=== PATIENT | male | born 1950 | race Caucasian/White ===

== ENCOUNTER 2019-04-11 09:24 | Outpatient (CLI) | payer MEDICARE, OTHER, SELFPAY ==
--- NOTE | 2019-04-11 | XR_ITS ---
WS: [id number] THORACIC SPINE TECHNIQUE: 3 views of the thoracic spine CLINICAL INFORMATION: ACUTE LUMBAR AND THORACIC BACK PAIN COMPARISON: None. FINDINGS: Mild thoracic curve. Hypertrophic changes thoracic spine. Chronic anterior wedging in the mid and low er thoracic spine. No acute appearing compression fractures. XR/XR thoracic spine 3V* [id number] IMPRESSION: No acute thoracic spine findings
--- NOTE | 2019-04-11 | XR_ITS ---
WS: [id number] LUMBAR SPINE TECHNIQUE: 3 views of the lumbar spine CLINICAL INFORMATION: ACUTE LUMBAR AND THORACIC BACK PAIN COMPARISON: None. FINDINGS: Five [id number] lumbar vertebral bodies. Mild lumbar curve convex left. Slight retrolisthesis L3 on L4. Disc space narrowing worse L5-S1. Mild facet arthropathy L5-S1. Mild chronic anterior wedging at the thoracolumbar junction. Vascular calcification. XR/XR lumbar spine 2-3V* [id number] IMPRESSION: Moderate spondylitic changes. No acute lumbar spine findings.
== END 2019-04-11 09:25 | disposition home or self-care (01) ==
LOC: RADOUTREAD 12:13
PROVIDERS: Family Provider Internal Medicine; PCP Internal Medicine; Visit Provider Internal Medicine
DX: M47.896 Other spondylosis, lumbar region (principal); M54.5 Low back pain; M54.6 Pain in thoracic spine

== ENCOUNTER → 2021-07-29 13:43 | Outpatient (BNVA) | payer MEDICARE, OTHER, SELFPAY | PROVIDERS: Family Provider Internal Medicine; PCP Internal Medicine; Visit Provider Internal Medicine Cardiovascular Disease | DX: I25.10 Atherosclerotic heart disease of native coronary artery without angina pectoris (principal); I25.2 Old myocardial infarction; Z87.891 Personal history of nicotine dependence; I10 Essential (primary) hypertension; E78.5 Hyperlipidemia, unspecified | CPT/HCPCS: 99213 ==

== ENCOUNTER → 2022-07-29 12:18 | Outpatient (BNVA) | payer MEDICARE, OTHER, SELFPAY | PROVIDERS: Family Provider Internal Medicine; PCP Internal Medicine; Visit Provider Internal Medicine Cardiovascular Disease | DX: I35.1 Nonrheumatic aortic (valve) insufficiency (principal); Z86.79 Personal history of other diseases of the circulatory system; Z86.39 Personal history of other endocrine, nutritional and metabolic disease; Z87.891 Personal history of nicotine dependence | CPT/HCPCS: 93005; 99215 ==

== ENCOUNTER 2022-08-12 10:57 | Outpatient (CLI) | payer MEDICARE, OTHER, SELFPAY ==
--- NOTE | 2022-08-12 11:15 | USCV_ITS ---
Poli Piper Age: 71 Gender: M : 1950 Exam Date: 08/12/2022 11:14 Ordering Phys: Lottie Mccauley MD ([email or web address]) Technologist: Isiah Villasenor [place] [facility] [place]: AO regurg BP: 135 / 83 HR: 63 Rhythm: Sinus Technical Quality: Adequate MEASUREMENTS (Male / Female) Normal Values 2D ECHO LVOT Diameter 2.0 cm LV Ejection Fraction MOD 2C 65.4 % LV Ejection Fraction 2C AL 65.9 % LA Diameter 3.3 cm LA Width 3.4 cm LA Height 4.3 cm RA Width 3.3 cm RA Height 4.0 cm Aorta at Sinotubular Diameter 2.9 cm M-MODE Aortic Annulus Diameter 3.0 cm LA Ao Ratio MM 1.1 MV E Point Septal Separation 0.7 cm DOPPLER AV Peak Velocity 286.7 cm/s LVOT Peak Velocity 71.0 cm/s AV Area Cont Eq vti 0.9 cm squared AV Area Cont Eq pk 0.8 cm squared MV Peak Velocity 127.0 cm/s MV Area PHT 4.3 cm squared Mitral E to A Ratio 0.9 MV E' Velocity 41.0 cm/s Mitral E to MV E' Ratio 10.0 Mitral E to LV E' Lateral Ratio 9.3 Mitral E to LV E' Septal Ratio 10.9 TR Peak Velocity 334.5 cm/s TR Peak Gradient 49.8 mmHg TR Mean Velocity 234.1 cm/s TR Mean Gradient 27.6 mmHg TR Velocity Time Integral 81.9 cm Right Atrial Pressure 8.0 mmHg Pulmonary Artery Systolic Pressu 52.8 mmHg PV Peak Velocity 113.0 cm/s RV Acceleration Time 0.1 s RV Ejection Time 0.3 s RV AcT/ET 0.3 FINDINGS Left Ventricle Normal left ventricular size and systolic function, EF 64 %. No regional wall motion abnormalities. Mild left ventricular hypertrophy. Grade I/IV diastolic dysfunction (abnormal relaxation filling pattern), normal to mildly elevated filling pressures. Right Ventricle Possibly of normal size ejection fraction Right Atrium The right atrium is normal in size. Left Atrium The left atrium is normal in size. Mitral Valve No gross abnormalities noted Aortic Valve Moderate aortic valve calcification. [id number] aortic valve regurgitation. Severe low gradient aortic valve stenosis, mean gradient 22 mmHg, LUANN 0.97 cm squared. Peak velocity of 3.01 m/s with a peak gradient of 36 mmHg. Tricuspid Valve Trace tricuspid valve regurgitation. Pulmonic Valve No gross abnormalities noted Pericardium Normal pericardium without effusion. Aorta Normal ascending aorta dimension. IVC The inferior vena cava appears normal. CONCLUSIONS Normal left ventricular size and systolic function, EF 64 %. No regional wall motion abnormalities. Mild left ventricular hypertrophy. Grade I/IV diastolic dysfunction (abnormal relaxation filling pattern), normal to mildly elevated filling pressures. Severe low gradient aortic valve stenosis, mean gradient 22 mmHg, LUANN 0.97 cm squared. Peak velocity of 3.01 m/s with a peak gradient of 36 mmHg. [id number] aortic valve regurgitation. Moderate aortic valve calcification. Trace tricuspid valve regurgitation. Moderate Pulmonary hypertension with an estimated pulmonary artery peak systolic pressure 53 mmHg There is no pericardial effusion. Compared to the study from 01/01/2014, there is worsening of the aortic valve stenosis and development of pulmonary hypertension Dr Lottie Mccauley MD [facility] (Electronically Signed) Final Date: 13 Aug 2022 16:50 S
== END 2022-08-12 10:58 | disposition home or self-care (01) ==
LOC: RAD 11:01
PROVIDERS: PCP Internal Medicine; Visit Provider Internal Medicine Cardiovascular Disease
DX: I35.1 Nonrheumatic aortic (valve) insufficiency (principal); I35.0 Nonrheumatic aortic (valve) stenosis; I27.20 Pulmonary hypertension, unspecified; R06.09 Other forms of dyspnea
CPT/HCPCS: 93306

== ENCOUNTER 2022-10-28 12:44 | Outpatient (CLI) | payer MEDICARE, OTHER, SELFPAY ==
--- NOTE | 2022-10-28 | ECG_ITS ---
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 Interpretive Statements NAME OF STUDY: DOBUTAMINE STRESS ECHOCARDIOGRAM INDICATION: Valve tightening , PROCEDURE: At the baseline, the blood pressure was 152/78 with a heart rate of 80/min. The electrocardiogram showed normal sinus rhythm with a features of possible old inferior wall IL. Some nonspecific T wave changes. Poor R wave progression The dobutamine was infused over a period of 13 minutes and 50 seconds. The maximum heart rate obtained was 116(78%) of the maximum predicted heart rate). The blood pressure at that time was 158/79 mmHg. The patient did not have any chest pain or any significant electrocardiogram changes with the dobutamine infusion. The physical examination remained unchanged. No arrhythmias were seen on the monitor. During the recovery phase, the patient did not have any specific symptoms. The blood pressure at the end of the recovery phase was 137/71 with a heart rate of 81 per minute. CONCLUSION: 1. No significant EKG changes with the dobutamine fusion 2. No dobutamine induced chest pain or cardiac arrhythmia 3. Echocardiogram was performed to evaluate the LV function, valve gradient, valve area and the flow volume at various stages of the infusion . 4. Please see separate report for the echocardiographic response to dobutamine fusion Electronically Signed On 11-05-2022 10:36:13 CDT by Lottie Mccauley M.D. [id number]
--- NOTE | 2022-10-28 | USCV_ITS ---
Dobutamine Stress Echo Poli Piper Age: 72 Gender: M : 1950 Exam Date: 10/28/2022 13:12 Ordering Phys: Lottie Mccauley MD ([email or web address]) Technologist: MYRON Exam Location: [facility] – [place] Indication: Valve Tightening Rhythm: Sinus Patient History: [place], PTCA, CAD, HTN, SMOKING, HYPERLIPIDEMIA Cardiac Medications: Metoprolol 12.5mg BID, Lisinopril 10mg Daily Medications in past 24 hours: No Contrast: Total Dose (mL): Stress Results Protocol: Pharmacologic Peak Dose (???g/kg/min): 10 Duration (min:sec): 13:50 Atropine:(mg) Target HR: 126 Double Product: Resting HR: 80 Resting BP: 152 / 78 Peak HR: 116 Peak BP: 176 / 84 Max Predicted HR: 148 78 % Max Predicted HR Stress Summary: The hemodynamic response to stress was normal. BP Response: Normal Reason for Termination: Protocol complete Cardiac Symptoms: None ECG Analysis Resting EKG: Stress EKG: Arrhythmia: MEASUREMENTS (Male/Female) Normal Values 2D ECHO LVOT Diameter 2.0 cm DOPPLER AV Peak Velocity 285.8 cm/s LVOT Peak Velocity 97.0 cm/s AV Area Cont Eq vti 1.1 cm squared AV Area Cont Eq pk 1.1 cm squared FINDINGS Baseline echocardiogram normal LV size and ejection fraction. Segmental wall motion analysis revealed no gross wall motion Abnormalities. With a peak dobutamine infusion, there was good augmentation of all the segments within no dobutamine induced wall motion abnormalities The resting flow through the LV outflow tract was 37.6 mm/m squared. The gradient across the aortic valve dropped from 24mmHg to 11 mmHg CONCLUSIONS 1. Normal flow low gradient aortic valve stenosis, asymptomatic. 2. Normal echocardiographic response due to infusion suggesting no significant stenosis in the coronary arteries Dr Lottie Mccauley MD [facility] (Electronically Signed) Final Date: 29 October 2022 16:05 S
[2022-10-28 12:59] VITALS: BMI 25.8
[2022-10-28] MEDS: DOBUTtamine 200 MG in sodium chloride 0.9% 34 ML IV (13:23)
[2022-10-28 13:55] VITALS: BP 137/71; PULSE 83
== END 2022-10-28 12:45 | disposition home or self-care (01) ==
LOC: CDL 12:44
PROVIDERS: PCP Internal Medicine; Visit Provider Internal Medicine Cardiovascular Disease
DX: Z86.39 Personal history of other endocrine, nutritional and metabolic disease (principal); Z86.79 Personal history of other diseases of the circulatory system; I35.1 Nonrheumatic aortic (valve) insufficiency; I35.0 Nonrheumatic aortic (valve) stenosis
CPT/HCPCS: 36415; 93017; 93350; 96374; J1250; J7050

== ENCOUNTER → 2023-08-01 09:32 | Outpatient (BNVA) | payer MEDICARE, OTHER, SELFPAY | PROVIDERS: Family Provider Internal Medicine; PCP Internal Medicine; Visit Provider Internal Medicine Cardiovascular Disease | DX: I25.10 Atherosclerotic heart disease of native coronary artery without angina pectoris (principal); I10 Essential (primary) hypertension; I35.0 Nonrheumatic aortic (valve) stenosis; Z87.891 Personal history of nicotine dependence | CPT/HCPCS: 99214 ==

== ENCOUNTER → 2024-02-07 09:42 | Outpatient (BNVA) | payer MEDICARE, OTHER, SELFPAY | PROVIDERS: Family Provider Internal Medicine; PCP Internal Medicine; Visit Provider Internal Medicine Cardiovascular Disease | DX: R06.09 Other forms of dyspnea (principal); I35.0 Nonrheumatic aortic (valve) stenosis; Z86.79 Personal history of other diseases of the circulatory system; Z86.39 Personal history of other endocrine, nutritional and metabolic disease; Z87.891 Personal history of nicotine dependence | CPT/HCPCS: 99214 ==

== ENCOUNTER 2024-02-29 07:16 | Outpatient (CLI) | payer MEDICARE, OTHER, SELFPAY ==
--- NOTE | 2024-02-29 07:45 | USCV_ITS ---
Poli Piper Age: 73 Gender: M : 1950 Exam Date: 02/29/2024 07:45 Ordering Phys: Lottie Mccauley MD ([email or web address]) Technologist: MYRON Exam Location: [facility] [place] Indication: BP: 130 / 80 HR: 63 Rhythm: Sinus Technical Quality: Suboptimal MEASUREMENTS (Male / Female) Normal Values 2D ECHO LV Diastolic Diameter PLAX 3.9 cm 4.2 - 5.9 / 3.9 - 5.3 cm IVS Diastolic Thickness 1.1 cm 0.6 - 1.0 / 0.6 - 0.9 cm IVS Systolic Thickness 1.8 cm LVPW Diastolic Thickness 1.8 cm 0.6 - 1.0 / 0.6 - 0.9 cm LVPW Systolic Thickness 2.1 cm LVOT Diameter 2.0 cm LV Ejection Fraction 2D Teich 47.8 % LV Ejection Fraction MOD 4C 51.4 % LV Ejection Fraction MOD 2C 44.4 % LV Ejection Fraction 2C AL 49.5 % LA Diameter 3.5 cm RA Systolic Volume 4C AL 29.6 ml RA Systolic Volume 4C MOD 28.1 ml LA Sys Volume AL 37.4 cm cubed LA Sys Volume Index AL 18.9 cm cubed/m squared Aorta at Sinotubular Diameter 2.8 cm M-MODE LA Ao Ratio MM 1.2 AV Cusp Separation MM 1.2 cm DOPPLER AV Peak Velocity 354.0 cm/s LVOT Peak Velocity 82.0 cm/s AV Area Cont Eq vti 0.9 cm squared AV Area Cont Eq pk 0.7 cm squared MV Peak Velocity 135.3 cm/s MV Area PHT 2.4 cm squared TR Peak Velocity 141.0 cm/s TR Peak Gradient 8.0 mmHg TR Mean Velocity 114.0 cm/s TR Mean Gradient 5.6 mmHg TR Velocity Time Integral 43.5 cm TV Peak E Velocity 54.0 cm/s PV Peak Velocity 88.0 cm/s RV Ejection Time 0.4 s FINDINGS Left Ventricle Normal left ventricular size and systolic function, EF 60% (visual). Moderate dyskinesia of the basal inferior segment.mild left ventricular hypertrophy. Grade I/IV diastolic dysfunction (abnormal relaxation filling pattern), normal to mildly elevated filling pressures. Right Ventricle The right ventricle is normal in size and function. Right Atrium The right atrium is normal in size. Left Atrium Mildly increased left atrial size. Mitral Valve No gross abnormalities noted Aortic Valve Mild aortic valve regurgitation. Severe low gradient aortic valve stenosis, mean gradient 25.7 mmHg, LUANN 0.86 cm squared. Moderate aortic valve calcification. Peak velocity of 3.54 m/s with a peak gradient of 50 mmHg Tricuspid Valve Trace tricuspid valve regurgitation. Pulmonic Valve No gross abnormalities noted Pericardium Normal pericardium without effusion. Aorta Normal ascending aorta dimension. IVC Inferior vena cava not visualized. CONCLUSIONS Normal left ventricular size and systolic function, EF 51%. Moderate dyskinesia of the basal inferior segment.mild left ventricular hypertrophy. Grade I/IV diastolic dysfunction (abnormal relaxation filling pattern), normal to mildly elevated filling pressures. Severe low gradient aortic valve stenosis, mean gradient 25.7 mmHg, LUANN 0.86 cm squared. Moderate aortic valve calcification. Peak velocity of 3.54 m/s with a peak gradient of 50 mmHg. Mild aortic valve regurgitation. Mildly increased left atrial size. Trace tricuspid valve regurgitation. PA pressure estimation is difficult because of poor Doppler signals There is no pericardial effusion. Compared to the study from 08/12/2022, there may not be a significant change Dr Lottie Mccauley MD [facility] (Electronically Signed) Final Date: 10 March 2024 15:41 S
== END 2024-02-29 07:17 | disposition home or self-care (01) ==
PROVIDERS: PCP Family Medicine; Visit Provider Internal Medicine Cardiovascular Disease
DX: I50.30 Unspecified diastolic (congestive) heart failure (principal); G25.89 Other specified extrapyramidal and movement disorders; I35.0 Nonrheumatic aortic (valve) stenosis; R06.09 Other forms of dyspnea
CPT/HCPCS: 93306

== ENCOUNTER → 2024-07-31 13:07 | Outpatient (BNVA) | payer MEDICARE, OTHER, SELFPAY | PROVIDERS: PCP Family Medicine; Visit Provider Internal Medicine Cardiovascular Disease | DX: I25.10 Atherosclerotic heart disease of native coronary artery without angina pectoris (principal); I35.0 Nonrheumatic aortic (valve) stenosis; I10 Essential (primary) hypertension; I35.1 Nonrheumatic aortic (valve) insufficiency; Z79.82 Long term (current) use of aspirin; Z95.5 Presence of coronary angioplasty implant and graft; Z87.891 Personal history of nicotine dependence; I25.2 Old myocardial infarction | CPT/HCPCS: 99214 ==

== ENCOUNTER 2024-09-27 06:14 | Day surgery (SDC) | payer MEDICARE, OTHER, SELFPAY ==
[2024-09-27] VITALS (7 sets, daily range): BP systolic 102–144; BP diastolic 61–98; PULSE 65–79; RESP 16–18; TEMP 36.1–36.7; O2SAT 94–98
--- NOTE | 2024-09-27 08:03 | W.PM.OPSFHP ---
Same Day Surgery H&P Indication for Procedure/HPI DATE OF PROCEDURE: September 27, 2024 CHIEF COMPLAINT/INDICATIONFOR SURGICAL PROCEDURE: Low gradient severe aortic valve stenosis Coronary artery disease Pre-TAVR assessment PREOP DIAGNOSIS: Pre-TAVR assessment for aortic valve stenosis PLANNED PROCEDURE: Transvaginal echocardiogram is scheduled today for pre-TAVR assessment and to differentiate between true aortic valve stenosis versus low-flow gradient and as well as look at the valvular structure Operation Date: 09/27/24 08:00 Proposed Procedures p TYRONE(Not Applicable) - Chacho Torres MD 73-year-old male past medical history significant coronary disease aortic valve stenosis who in general he appeared to be not very symptomatic however transthoracic echocardiogram is consistent with severe aortic valve stenosis because of the discrepancy we will proceed with transesophageal echocardiogram for pre-TAVR assessment. Patient has been explained all risk-benefit and alternative for the procedure. Patient understand risk for intubation, laceration injury to the oropharynx anesthesia complication arrhythmia and resuscitation. He agrees to it and would like to proceed with it Medications/Allergies* Home Medications ?Medication ?Instructions ?Recorded ?Confirmed ?Type aspirin 81 mg tablet,delayed 81 mg PO DAILY 12/13/19 09/27/24 History release (Adult Aspirin Regimen) omega-3 fatty acids 1,000 mg 1,000 mg PO DAILY 12/13/19 09/27/24 History capsule (Fish Oil Concentrate) simvastatin 40 mg tablet 40 mg PO DAILY 12/13/19 09/27/24 History Allergies/Adverse Reactions Allergy/AdvReac Type Severity Reaction Status Date / Time ampicillin Allergy unknown Verified 08/27/24 09:55 Penicillins Allergy unknown Verified 08/27/24 09:55 Current Medications: Generic Name Dose Route Start Last Admin Trade Name Freq PRN Reason Stop Dose Admin Sodium Chloride 1,000 mls @ 15 mls/hr 09/27/24 06:19 09/27/24 06:43 Sodium Chloride 0.9% IV 09/28/24 06:18 15 mls/hr .Q24H PRN Administration COLONOSCOPY FLUIDS Pertinent History/Comorbid Conditions* Medical History (Updated 08/06/24 @ 17:36 by Carly Ambrosio) Hx of smoking Hx of myocardial infarction Hx of coronary artery disease The EKG from today, 07/29/2022 revealed normal sinus rhythm with a normal ST Ts. 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 Hx of hyperlipidemia History of hypertension Surgical History (Updated 07/29/21 @ 14:07 by Filiberto Rodriguez MD) History of PTCA Social History Smoking and tobacco/nicotine status: former use of tobacco/nicotine Pertinent Exam Findings alert, oriented x 3, clear to auscultation bilaterally, regular rate & rhythm and operative site marked Conscious Sedation Assessment PATIENT ASSESSED PRIOR TO SEDATION, WITH NO CHANGE NOTED: Yes AIRWAY EVAL/ANESTHESIA PLAN: Risks, benefits & alternatives of sedation and/or procedure discussed and Patient agrees to continue as planned ADDITIONAL INFORMATION: Please see anesthesia assessment for the airway management Recommendations Surgery/Procedure today Coding Level of Care Code Acute Code for Chg Fwd
--- NOTE | 2024-09-27 08:08 | ANES.PREANE2 ---
Pre-Anesthetic Assessment Height/Weight: Height 5 ft 8 in Weight 175 lb Temp Pulse Resp BP Pulse Ox O2 Del Method 97.4 F L 65 16 144/98 97 Room Air 09/27/24 06:31 09/27/24 06:31 09/27/24 06:31 09/27/24 06:31 09/27/24 06:31 09/27/24 06:31 Preop Diagnosis: Pre-TAVR assessment for aortic valve stenosis Operation Date: 09/27/24 08:00 Proposed Procedures p TYRONE(Not Applicable) - Chacho Torres MD Was Beta Marisol taken within 24 hours: N/A Was Clonidine taken within 24 hours: N/A Last intake: Intake Last Liquid Date 09/26/24 Last Liquid Time 20:00 Last Solid Date 09/26/24 Last Solid Time 18:00 Social No alcohol and No tobacco Exam alert, oriented x 3, clear to auscultation bilaterally and regular rate & rhythm Airway Submandibular: within normal limits Cervical ROM: within normal limits Mallampati: Class III Dentition: partials Anesthetic Plan ASA status: 3 Anesthesia: MAC Other: No prior issues with anesthesia NPO since yesterday evening History of hypertension on lisinopril and metoprolol S/p stents in 2013. States he has had no issues since that time Very active individual, walks over an hour a day Echo 2023 showing EF of 60% however aortic valve area of 0.86 Plan for MAC anesthesia Medications/Allergies Home Medications ?Medication ?Instructions ?Recorded ?Confirmed ?Last Taken ?Type aspirin 81 mg tablet,delayed 81 mg PO DAILY 12/13/19 09/27/24 09/26/24 History release (Adult Aspirin Regimen) omega-3 fatty acids 1,000 mg 1,000 mg PO DAILY 12/13/19 09/27/24 09/26/24 History capsule (Fish Oil Concentrate) simvastatin 40 mg tablet 40 mg PO DAILY 12/13/19 09/27/24 09/26/24 History metoprolol tartrate 25 mg tablet 25 mg PO BID 30 days #180 tabs 08/01/23 09/27/24 09/27/24 Rx lisinopril 20 mg tablet 20 mg PO DAILY #90 tabs 02/13/24 09/27/24 09/26/24 Rx Allergies Allergy/AdvReac Type Severity Reaction Status Date / Time ampicillin Allergy unknown Verified 08/27/24 09:55 Penicillins Allergy unknown Verified 08/27/24 09:55 Current Medications Generic Name Dose Route Start Last Admin Trade Name Freq PRN Reason Stop Dose Admin Sodium Chloride 1,000 mls @ 15 mls/hr 09/27/24 06:19 09/27/24 06:43 Sodium Chloride 0.9% IV 09/28/24 06:18 15 mls/hr .Q24H PRN Administration COLONOSCOPY FLUIDS PFSH Anesthesia Medical History Hx of smoking Hx of myocardial infarction Hx of coronary artery disease The EKG from today, 07/29/2022 revealed normal sinus rhythm with a normal ST Ts. 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 Hx of hyperlipidemia History of hypertension Surgical History History of PTCA Social History Smoking and tobacco/nicotine status: former use of tobacco/nicotine Data Anesthesia Cardiac Studies: Echocardiogram 02/29/24 Stress Echocardiogram 10/28/22
--- NOTE | 2024-09-27 08:32 | USCV_ITS ---
Poli Piper Age: 73 Gender: M : 1950 Exam Date: 09/27/2024 08:35 Ordering Phys: Chacho Torres MD ([email or web address]) Technologist: Exam Location: [facility] – [place] Indication: afib BP: 134 / 75 HR: Rhythm: Sinus Technical Quality: MEASUREMENTS (Male / Female) Normal Values Medications Patient given IV sedation by anesthesia service, for details please refer to the anesthesia report. Complications None. Proc. Components The patient was brought to the TYRONE examination room in a fasting state after obtaining an informed consent. The TYRONE probe was passed into the posterior pharynx , mid-esophagus, distal esophagus, and gastric fundus. TYRONE was performed at multiple levels. The patient tolerated the procedure well and there were no complications. FINDINGS Left Ventricle Normal left ventricular size, systolic function and wall thickness, with no regional wall motion abnormalities. Left ventricular ejection fraction is estimated at 60 %. Right Ventricle The right ventricle is normal in size and function. Right Atrium The right atrium is normal in size. Left Atrium The left atrium is normal in size. LA Appendage The LA appendage is normal. IA Septum The interatrial septum is normal. Mitral Valve Structurally normal mitral valve without significant stenosis or prolapse. There is no mitral regurgitation. Aortic Valve Severe aortic valve calcification. Trace aortic valve regurgitation. Moderate aortic valve stenosis,, LUANN 1.2 cm squared. Tricuspid Valve Structurally normal tricuspid valve without significant stenosis or regurgitation. Pulmonary artery systolic pressure is normal. Pulmonic Valve Structurally normal pulmonic valve without significant stenosis. There is no pulmonic regurgitation. Pericardium Normal pericardium without effusion. Aorta Moderate plaque seen in the aorta. CONCLUSIONS Normal left ventricular size, systolic function and wall thickness, with no regional wall motion abnormalities. Left ventricular ejection fraction is estimated at 60 %. Severe aortic valve calcification. Trace aortic valve regurgitation. Moderate aortic valve stenosis,, LUANN 1.2 cm squared. There is no pericardial effusion. Chacho Torres MD (Electronically Signed) Final Date: 12 October 2024 14:09 S
--- NOTE | 2024-09-27 10:09 | ANE.PACU2 ---
Inpatient post-anesthesia follow up: Airway intact: Yes Vital signs: Temperature 97 F Pulse Rate 70 Respiratory Rate 18 Blood Pressure 144/82 Pulse Oximetry 98 Oxygen Delivery Me thod Room Air Oxygen Flow Rate Fraction of Inspir ed Oxygen Hydration adequate: Yes Nausea and vomiting: No Pain level: 1 Mental status: Baseline
== END 2024-09-27 10:09 | disposition home or self-care (01) ==
PROVIDERS: PCP Family Medicine; Visit Provider Internal Medicine Cardiovascular Disease
PROC: (CPT 93312; principal; 2024-09-27 08:00)
DX: I35.0 Nonrheumatic aortic (valve) stenosis (principal); I25.10 Atherosclerotic heart disease of native coronary artery without angina pectoris; I25.2 Old myocardial infarction; I10 Essential (primary) hypertension; E78.5 Hyperlipidemia, unspecified; Z79.899 Other long term (current) drug therapy; Z79.82 Long term (current) use of aspirin; Z88.0 Allergy status to penicillin; Z87.891 Personal history of nicotine dependence; Z95.5 Presence of coronary angioplasty implant and graft
CPT/HCPCS: 93312; 93320; 93325; J2704; J7030

== ENCOUNTER → 2025-01-29 14:33 | Outpatient (BNVA) | payer MEDICARE, OTHER, SELFPAY | PROVIDERS: PCP Family Medicine; Visit Provider Internal Medicine Cardiovascular Disease | DX: I35.0 Nonrheumatic aortic (valve) stenosis (principal); I25.10 Atherosclerotic heart disease of native coronary artery without angina pectoris; Z87.891 Personal history of nicotine dependence; I10 Essential (primary) hypertension; I25.2 Old myocardial infarction | CPT/HCPCS: 99213 ==